=== PATIENT | female | born 1950 | race Caucasian/White ===

== ENCOUNTER → 2017-03-21 | Outpatient (CLI) | payer OTHER ==
--- NOTE | 2017-03-21 16:32 | PCVCIMAG ---
APPROVED REPORT Study performed: 03/21/2017 13:39:31 EXAM: Comprehensive 2D, Doppler, and color-flow Echocardiogram Patient Location: Echo lab Status: routine BSA: 1.64 HR: 72 bpmBP: 104/60 mmHg Rhythm: NSR Other Information Study Quality: Good Risk Factors: Cardiac Risk Factors: Smoking, Hyperlipidemia Indications Cardiomyopathy Hyperlipidemia. Raynauds, Smoking, 2D Dimensions LVEF(%): 31.60 (>50%) IVSd: 9.88 (7-11mm)LVOT Diam: 17.85 (18-24mm) LVDd: 40.06 mm PWd: 10.39 (7-11mm)Ascending Ao: 31.00 (22-36mm) LVDs: 34.18 (25-40mm) Left Atrium: 28.59 (27-40mm) Aortic Root: 26.14 mm LV Single Plane 4CH: 40.29 % LV Single Plane 2CH: 47.08 %Khan's LVEF: 43.69 % Biplane EF: 43.2 % Volumes Left Atrial Volume (Systole) Single Plane 4CH: 35.24 mLSingle Plane 2CH: 54.76 mL LA ESV Index: 30.00 mL/m2 Aortic Valve LVOT Max P.23 mmHg LVOT Max V: 0.75 m/s Mitral Valve E/A Ratio: 0.6 MV Decel. Time: 336.21 ms MV E Max Akbar.: 0.42 m/s MV A Akbar.: 0.66 m/s TDI E/Lateral E': 5.25E/Medial E': 8.40 Medial E' Akbar.: 0.05 m/s Lateral E' Akbar.: 0.08 m/s Pulmonary Vein P Vein S: 0.49 m/sP Vein A: 0.46 m/s P Vein D: 0.39 m/sP Vein A Dur.: 72.7 msec P Vein S/D Ratio: 1.26 Tricuspid Valve TR Peak Akbar.: 2.21 m/s TR Peak Gr.: 19.55 mmHg Left Ventricle The left ventricle is normal size. There is normal LV segmental wall motion. There is normal left ventricular wall thickness. Left ventricular systolic function is mild to moderately decreased. Discordant septal motion, probably from LBBB LVEF is 40-45%. Grade I - abnormal relaxation pattern. Right Ventricle The right ventricle is normal size. The right ventricular systolic function is normal. Atria The left atrium size is normal. The right atrium size is normal. Aortic Valve The aortic valve is normal in structure. No aortic regurgitation is present. There is no aortic valvular stenosis. Mitral Valve The mitral valve is normal in structure. Trace mitral regurgitation. No evidence of mitral valve stenosis. Tricuspid Valve The tricuspid valve is normal in structure. Trace tricuspid regurgitation. Pulmonary artery pressure is 30mmHg. Pulmonic Valve The pulmonary valve is normal in structure. Trace pulmonic regurgitation. Great Vessels The aortic root is normal in size. IVC is normal in size and collapses with >50% inspiration Pericardium There is no pericardial effusion. <Conclusion> Left ventricular systolic function is mild to moderately decreased. Discordant septal motion, probably from LBBB LVEF is 40-45%. Grade I diastolic dysfunction The aortic valve is normal in structure. No aortic regurgitation or stenosis The mitral valve is normal in structure. Trace mitral regurgitation. Pulmonary artery pressure of 30mmHg There is no pericardial effusion.
== END | disposition home or self-care (01) ==
LOC: PCVCIMAG 13:28
PROVIDERS: ATTEND Internal Medicine
DX: I42.0 Dilated cardiomyopathy (principal); E78.5 Hyperlipidemia, unspecified; I73.00 Raynaud's syndrome without gangrene; F17.210 Nicotine dependence, cigarettes, uncomplicated; Z79.82 Long term (current) use of aspirin; Z79.899 Other long term (current) drug therapy
CPT/HCPCS: 80061; 93005; 93306; G0463

== ENCOUNTER → 2018-09-25 | Outpatient (CLI) | payer BC ==
--- NOTE | 2018-09-25 12:32 | PCVCIMAG ---
APPROVED REPORT Study performed: 09/25/2018 10:04:49 EXAM: Comprehensive 2D, Doppler, and color-flow Echocardiogram Patient Location: Echo lab Status: routine BSA: 1.65 HR: 62 bpmBP: 96/62 mmHg Rhythm: NSR, LBBB Other Information Study Quality: Good Risk Factors: Cardiac Risk Factors: Hyperlipidemia, Smoking Indications Cardiomyopathy Raynaud's 2D Dimensions IVSd: 10.32 (7-11mm)LVOT Diam: 17.00 (18-24mm) LVDd: 46.19 mm PWd: 9.97 (7-11mm)Ascending Ao: 31.32 (22-36mm) LVDs: 41.72 (25-40mm) Left Atrium: 35.04 (27-40mm) Aortic Root: 28.34 mm LV Single Plane 4CH: 40.29 % LV Single Plane 2CH: 41.13 % Biplane EF: 40.5 % Volumes Left Atrial Volume (Systole) Single Plane 4CH: 26.22 mLSingle Plane 2CH: 42.88 mL LA ESV Index: 24.00 mL/m2 Aortic Valve AoV Peak Akbar.: 1.21 m/s AO Peak Gr.: 5.87 mmHgLVOT Max P.23 mmHg LVOT Max V: 0.75 m/s BARBARA Vmax: 1.43 cm2 Mitral Valve E/A Ratio: 0.7 MV Decel. Time: 334.52 ms MV E Max Akbar.: 0.45 m/s MV A Akbar.: 0.69 m/s IVRT: 78.43 ms TDI E/Lateral E': 7.50E/Medial E': 15.00 Medial E' Akbar.: 0.03 m/s Lateral E' Akbar.: 0.06 m/s Pulmonary Valve PV Peak Akbar.: 0.66 m/sPV Peak Gr.: 1.73 mmHg Pulmonary Vein P Vein S: 0.40 m/sP Vein A: 0.37 m/s P Vein D: 0.34 m/sP Vein A Dur.: 129.2 msec P Vein S/D Ratio: 1.18 Tricuspid Valve TR Peak Akbar.: 2.36 m/sRAP Estimate: 7.00 mmHg TR Peak Gr.: 22.23 mmHg PA Pressure: 29.00 mmHg Left Ventricle The left ventricle is normal size. There is normal LV segmental wall motion. There is normal left ventricular wall thickness. Left ventricular systolic function is moderately decreased. Discordant septal motion secondary to LBBB. LVEF is 40-45%. Mild diastolic dysfunction is present (impaired relaxation pattern). Right Ventricle The right ventricle is normal size. The right ventricular systolic function is normal. Atria The left atrium size is normal. The right atrium size is normal. Aortic Valve The aortic valve is sclerotic. No aortic regurgitation is present. There is no aortic valvular stenosis. Mitral Valve The mitral valve is normal in structure. Trace to mild mitral regurgitation. No evidence of mitral valve stenosis. Tricuspid Valve The tricuspid valve is normal in structure. Mild tricuspid regurgitation. Pulmonary artery pressure is 29 mmHg. Pulmonic Valve The pulmonary valve is normal in structure. There is no pulmonic valvular regurgitation. Great Vessels The aortic root is normal in size. IVC is normal in size and collapses >50% with inspiration. Pericardium There is no pericardial effusion. <Conclusion> Left ventricular systolic function is moderately decreased. Discordant septal motion secondary to LBBB. LVEF is 40-45%. Mild diastolic dysfunction The aortic valve is sclerotic. No aortic regurgitation or stenosis The mitral valve is normal in structure. Trace to mild mitral regurgitation. Mild tricuspid regurgitation. Pulmonary artery pressure of 29 mmHg. There is no pericardial effusion.
== END | disposition home or self-care (01) ==
LOC: PCVCIMAG 09:56
PROVIDERS: ATTEND Internal Medicine
DX: I08.3 Combined rheumatic disorders of mitral, aortic and tricuspid valves (principal); I42.9 Cardiomyopathy, unspecified
CPT/HCPCS: 93306